=== PATIENT | female | born 1975 | race Caucasian/White ===

== ENCOUNTER → 2016-05-01 | Outpatient (CLI) | payer BC, OTHER | END | disposition home or self-care (01) | LOC: C.RDSM 13:23 | PROVIDERS: ATTEND Orthopaedic Surgery | DX: R52 Pain, unspecified (principal) ==

== ENCOUNTER → 2016-05-14 | Outpatient (CLI) | payer BC ==
--- NOTE | 2016-05-14 14:21 | DIAGNOSTIC IMAGING REPORT ---
MRI left wrist LEFT UPPER EXT JOINT WITHOUT CLINICAL HISTORY: LEFT WRIST PAIN pain TECHNIQUE: Multi axial MRI acquisition COMPARISON STUDY: None FINDINGS: Signal characteristics of all major osseous structures are unremarkable. There is no bone marrow replacing process. There is a very small cortical cyst of the capitate. This is considered a benign finding. The tracheal fibrocartilage as well as interosseous ligaments appear to be intact. There is a 5 x 3 cm ganglion cyst adjacent to the extensor ligaments adjacent to the capitate within the carpal tunnel. All ligamentous and tendinous structures appear to be intact. IMPRESSION: 1. Small ganglion cyst within the carpal tunnel measuring 5 x 3 mm. Area 2. All remaining components of the wrist appear unremarkable. 3. All major ligamentous and tendinous structures appear intact. Electronically signed by: Oscar Herrera M.D. 05/14/2016 2:20 PM Dictated Date/Time: 05/14/2016 2:05 PM
== END | disposition home or self-care (01) ==
LOC: C.OPENMRI 12:52
PROVIDERS: ATTEND Orthopaedic Surgery
DX: M25.532 Pain in left wrist (principal)

== ENCOUNTER → 2016-08-22 | Outpatient (CLI) | payer BC ==
--- NOTE | 2016-08-22 14:43 | DIAGNOSTIC IMAGING REPORT ---
LEFT WRIST MIN 3 VIEWS ROUTINE CLINICAL HISTORY: LUMP LEFT WRIST COMPARISON: Left hand radiographs May 01, 2016 and MRI of the left wrist May 14, 2016. FINDINGS: Alignment of the left wrist is anatomic. No fracture or suspicious lesion is present. Joint spaces are preserved. Soft tissues are suboptimally assessed by radiography. IMPRESSION: No osseous abnormality of the left wrist. Electronically signed by: Fercho Pierre M.D. 08/22/2016 2:42 PM Dictated Date/Time: 08/22/2016 2:41 PM
== END | disposition home or self-care (01) ==
LOC: C.RDSM 14:30
PROVIDERS: ATTEND Physician Assistant
DX: R22.9 Localized swelling, mass and lump, unspecified (principal)

== ENCOUNTER → 2016-08-22 | Outpatient (CLI) | payer BC ==
[2016-08-22 17:39] LABS: CHOLESTEROL/HDL RATIO 3.1
== END | disposition home or self-care (01) ==
LOC: C.LAB1850 15:31
PROVIDERS: ATTEND Obstetrics & Gynecology
DX: Z31.41 Encounter for fertility testing (principal); E78.5 Hyperlipidemia, unspecified; D35.2 Benign neoplasm of pituitary gland; E28.2 Polycystic ovarian syndrome

== ENCOUNTER → 2016-09-01 | Outpatient (CLI) | payer BC ==
--- NOTE | 2016-09-01 10:36 | DIAGNOSTIC IMAGING REPORT ---
LUMBAR SPINE MRI HISTORY: LUMBAR PAIN TECHNIQUE: Multiplanar multisequence MRI of the lumbar spine was performed without the use of contrast. COMPARISON: None. FINDINGS: For the purpose of the report the L5-S1 disc space will be located on axial image 23 of 25. Alignment and curvature intact. No fracture or subluxation. The conus terminates at the L2 level. A 12 mm T2 hyperintense, T1 hypointense nonspecific lesion within the L4 vertebral body. In the absence of a known malignancy this is likely benign. Mild disc space narrowing at L2-L3 and L5-S1 with associated disc desiccation. The visualized paraspinal soft tissues are unremarkable. L1-L2: No significant central canal or neural foraminal narrowing. L2-L3: Broad-based posterior disc bulge with a focal central annular tear. No significant central canal or neural foraminal narrowing. L3-L4: No significant central canal or neural foraminal narrowing. L4-L5: No significant central canal or neural foraminal narrowing. L5-S1: Tiny broad-based posterior disc bulge asymmetric to the left without significant central canal or neural foraminal narrowing. IMPRESSION: 1. Broad-based posterior disc bulge with a focal central annular tear at L2-L3. However, no significant central canal or neural foraminal narrowing. 2. Mild disc space narrowing at L5-S1 with a small broad-based posterior disc bulge. No severe central canal or neural foraminal narrowing. 3. No fracture or subluxation. 4. A 12 mm T2 hyperintense, T1 hypointense nonspecific lesion within the L4 vertebral body. In the absence of a known malignancy this is likely benign. Electronically signed by: Justin Butler M.D. 09/01/2016 10:34 AM Dictated Date/Time: 09/01/2016 10:17 AM
== END | disposition home or self-care (01) ==
LOC: C.OPENMRI 09:14
PROVIDERS: ATTEND Family Medicine
DX: M51.26 Other intervertebral disc displacement, lumbar region (principal)

== ENCOUNTER → 2016-09-18 | Outpatient (CLI) | payer BC ==
--- NOTE | 2016-09-18 15:01 | DIAGNOSTIC IMAGING REPORT ---
THYROID ULTRASONOGRAPHY CLINICAL HISTORY: D49.7 thyroid neoplasm COMPARISON STUDY: No previous studies for comparison. FINDINGS: The right lobe of the thyroid measures 6.7 x 1.9 x 2.1 cm. There is an ovoid circumscribed wider than tall slightly hypoechoic solid right lower pole nodule measuring 27 x 14 x 18 mm. The left lobe measures 5.3 x 1.1 x 1.6 cm. There is a wider than tall slightly hypoechoic minimally lobulated mid pole nodule measuring 10 x 6 x 5 mm. There is a 2 mm upper pole nodule. There is a 7 x 4 x 4 mm hyperechoic circumscribed nodule which is either exophytic arising from the lower pole the left lobe, or lies within the soft tissues abutting the lower pole. IMPRESSION: 1. Multinodular thyroid gland. 2. Dominant 27 x 18 x 14 mm right lobe nodule which meets size criteria for biopsy recommendation. Electronically signed by: Thnag Milligan M.D. 09/18/2016 3:00 PM Dictated Date/Time: 09/18/2016 2:49 PM
== END | disposition home or self-care (01) ==
LOC: C.ULTR 14:11
PROVIDERS: ATTEND Obstetrics & Gynecology
DX: E04.2 Nontoxic multinodular goiter (principal); D49.7 Neoplasm of unspecified behavior of endocrine glands and other parts of nervous system